=== PATIENT | female | born 1945 | race Caucasian/White ===

== ENCOUNTER 2020-04-21 13:52 | Inpatient (IN) ==
[2020-04-21] MEDS ORDERED: SODIUM CHLORIDE 0.9% 1,000 ML IV STA (14:21)
[2020-04-21 15:00] LABS: Basophils % 0.7 % (0.0-0.8); Hematocrit 43.8 VOL% (35.7-47.0); Hemoglobin 14.9 GM/DL (12.0-16.0); Immature Granulocytes % 0.7 %; Immature Granulocytes Absolute 0.02 #; Lymphocytes # 0.7 10*3/uL (1.4-4.0); Lymphocytes % 23.4 % (21.3-54.2); Mean Corpuscular Volume 84.6 FL (87-102); Mean Platelet Volume 9.6 FL (9.6-12.0); Monocytes % 14.7 % (1.7-12.7); Neutrophils % 60.5 % (38.7-73.9); Platelet Count 188 T/CUMM (130-400); Red Blood Count 5.18 MC/CUMM (3.8-5.5); Red Cell Distribution Width 13.2 % (9.3-17.3)
[2020-04-21 15:24] LABS: Albumin 3.5 G/DL (3.4-5.0); Bilirubin,Total 0.4 MG/DL (0.2-1.0); Calcium 8.4 MG/DL (8.5-10.1); Osmolality,Calculated 271.4 MOS/KG (273-304); Total Protein 7.6 G/DL (6.4-8.3)
[2020-04-21 15:31] LABS: Band Neutrophils 10 % (0-10); Lymphocytes 24 % (20-55); Segmented Neutrophils 51 % (50-85); Total Cells Counted 100
[2020-04-21 15:32] LABS: Atypical Lymphocytes 1+; Platelet Estimate Adequate
[2020-04-21 15:44] LABS: Bacteria,Urine Occasional /HPF (Few); Bilirubin,Urine Negative (Negative); Blood, Urine Negative (Negative); Glucose,Urine (UA) Negative (Negative); Hyaline Casts,Urine 1 /LPF (0-3); Ketones,Urine 20 mg/dL (Negative); Mucus,Urine Occasional /LPF (Occasional); Nitrite,Urine Negative (Negative); Protein,Urine 30 MG/DL; Squamous Epithelial Cell,Urine Occasional /HPF (0-10); Urine Appearance Slightly Hazy (Clear); Urine Color Amber (Yellow); Urine Urobilinogen < 2.0 EU/DL (0.2-1.0)
[2020-04-21] MEDS ORDERED: ACETAMINOPHEN 325 MG TABLET PO PRN (15:55)
[2020-04-21] MEDS ORDERED: INFLUENZA VIRUS VACCINE 0.5 ML SYRINGE IM ONE (17:57)
[2020-04-21] MEDS: SODIUM CHLORIDE 0.9% 1,000 ML IV SCH (18:31)
[2020-04-21] MEDS: ONDANSETRON 4 MG/2 ML VIAL IV PRN ×2 (18:56→18:57)
[2020-04-21] MEDS: methylPREDNISolone SOD SUC 40 MG/1 ML VIAL IV SCH (20:34)
[2020-04-21] MEDS: MEMANTINE 10 MG TABLET PO SCH (20:34)
[2020-04-21] MEDS ORDERED: DOCUSATE SODIUM 100 MG CAPSULE PO SCH (21:00)
[2020-04-22] MEDS: SODIUM CHLORIDE 0.9% 1,000 ML IV SCH ×3 (00:30→18:34)
[2020-04-22] MEDS: LEVOTHYROXINE 88 MCG TABLET PO SCH (06:15)
[2020-04-22 06:26] LABS: Hematocrit 38.2 VOL% (35.7-47.0); Hemoglobin 12.9 GM/DL (12.0-16.0); Immature Granulocytes % 0.6 %; Immature Granulocytes Absolute 0.01 #; Lymphocytes # 0.5 10*3/uL (1.4-4.0); Lymphocytes % 32.5 % (21.3-54.2); Mean Corpuscular HGB Conc 33.8 GM/DL (32-36); Mean Corpuscular Volume 84.9 FL (87-102); Mean Platelet Volume 9.8 FL (9.6-12.0); Monocytes % 10.8 % (1.7-12.7); Neutrophils % 56.1 % (38.7-73.9); Platelet Count 148 T/CUMM (130-400); Red Cell Distribution Width 13.2 % (9.3-17.3); White Blood Count 1.6 T/CUMM (4-12)
[2020-04-22 06:53] LABS: Calcium 7.4 MG/DL (8.5-10.1); Osmolality,Calculated 279.5 MOS/KG (273-304)
[2020-04-22 06:54] LABS: Band Neutrophils 4 % (0-10); Burr Cells Slight; Hypochromasia Slight; Lymphocytes 29 % (20-55); Microcytosis Slight; Ovalocytes Slight; Platelet Estimate Adequate; Segmented Neutrophils 58 % (50-85); Total Cells Counted 100
[2020-04-22 06:55] LABS: Atypical Lymphocytes Few
[2020-04-22] MEDS: methylPREDNISolone SOD SUC 40 MG/1 ML VIAL IV SCH ×2 (08:03→16:31)
[2020-04-22] MEDS: SIMVASTATIN 20 MG TABLET PO SCH (08:04)
[2020-04-22] MEDS: PANTOPRAZOLE 40 MG TABLET PO SCH (08:04)
[2020-04-22] MEDS: MEMANTINE 10 MG TABLET PO SCH ×2 (08:04→20:35)
[2020-04-22] MEDS ORDERED: DONEPEZIL 10 MG TABLET PO SCH (09:00)
[2020-04-22] MEDS: ONDANSETRON 4 MG/2 ML VIAL IV PRN (11:10)
[2020-04-22] MEDS ORDERED: PROMETHAZINE 25 MG/1 ML VIAL IM ONE (14:50)
[2020-04-22] MEDS ORDERED: PROMETHAZINE 25 MG/1 ML VIAL IM PRN (14:50)
[2020-04-22] MEDS: MEROPENEM 500 MG in SODIUM CHLORIDE 0.9% 100 ML IV SCH ×2 (16:30→21:08)
[2020-04-23] MEDS: SODIUM CHLORIDE 0.9% 1,000 ML IV SCH ×4 (00:10→20:30)
[2020-04-23] MEDS: methylPREDNISolone SOD SUC 40 MG/1 ML VIAL IV SCH (04:19)
[2020-04-23] MEDS: MEROPENEM 500 MG in SODIUM CHLORIDE 0.9% 100 ML IV SCH ×4 (04:19→21:02)
[2020-04-23] MEDS: LEVOTHYROXINE 88 MCG TABLET PO SCH (06:01)
[2020-04-23] MEDS: MEMANTINE 10 MG TABLET PO SCH ×2 (09:19→20:26)
[2020-04-23] MEDS: PANTOPRAZOLE 40 MG TABLET PO SCH (09:19)
[2020-04-23 09:29] LABS: Hematocrit 37.5 VOL% (35.7-47.0); Hemoglobin 12.7 GM/DL (12.0-16.0); Immature Granulocytes % 0.7 %; Immature Granulocytes Absolute 0.03 #; Lymphocytes # 0.5 10*3/uL (1.4-4.0); Lymphocytes % 11.7 % (21.3-54.2); Mean Corpuscular HGB Conc 33.9 GM/DL (32-36); Mean Corpuscular Volume 85.2 FL (87-102); Mean Platelet Volume 9.8 FL (9.6-12.0); Monocytes % 6.1 % (1.7-12.7); Neutrophils % 81.5 % (38.7-73.9); Platelet Count 153 T/CUMM (130-400); Red Cell Distribution Width 13.2 % (9.3-17.3); White Blood Count 4.1 T/CUMM (4-12)
[2020-04-23 09:49] LABS: Albumin 2.6 G/DL (3.4-5.0); Bilirubin,Total 0.7 MG/DL (0.2-1.0); Calcium 7.5 MG/DL (8.5-10.1); Osmolality,Calculated 280.4 MOS/KG (273-304); Total Protein 6.1 G/DL (6.4-8.3)
[2020-04-23] MEDS: buPROPion 75 MG TABLET PO SCH ×2 (10:00→20:26)
[2020-04-23] MEDS: SIMVASTATIN 20 MG TABLET PO SCH (10:00)
[2020-04-23] MEDS: TAMSULOSIN 0.4 MG CAPSULE PO SCH (10:00)
[2020-04-23] MEDS: CITALOPRAM 20 MG TABLET PO SCH (10:00)
[2020-04-24] MEDS: SODIUM CHLORIDE 0.9% 1,000 ML IV SCH ×3 (04:00→22:01)
[2020-04-24] MEDS: MEROPENEM 500 MG in SODIUM CHLORIDE 0.9% 100 ML IV SCH ×4 (05:50→22:01)
[2020-04-24] MEDS: LEVOTHYROXINE 88 MCG TABLET PO SCH (06:00)
[2020-04-24 06:09] LABS: Basophils % 0.2 % (0.0-0.8); Hematocrit 33.6 VOL% (35.7-47.0); Hemoglobin 11.5 GM/DL (12.0-16.0); Immature Granulocytes % 0.5 %; Immature Granulocytes Absolute 0.02 #; Lymphocytes # 0.8 10*3/uL (1.4-4.0); Lymphocytes % 17.9 % (21.3-54.2); Mean Corpuscular HGB Conc 34.2 GM/DL (32-36); Mean Corpuscular Volume 84.8 FL (87-102); Mean Platelet Volume 10.1 FL (9.6-12.0); Monocytes % 10.8 % (1.7-12.7); Neutrophils % 70.6 % (38.7-73.9); Platelet Count 157 T/CUMM (130-400); Red Blood Count 3.96 MC/CUMM (3.8-5.5); White Blood Count 4.3 T/CUMM (4-12)
[2020-04-24 06:51] LABS: Alanine Aminotransferase < 9 U/L (13-56); Albumin 2.4 G/DL (3.4-5.0); Alkaline Phosphatase 60 U/L (45-117); Aspartate Amino Transferase 22 U/L (0-37); Blood Urea Nitrogen 12 MG/DL (7-18); Calcium 7.3 MG/DL (8.5-10.1); Estimated Glom Filtration Rate 86 ML/MIN; Glucose 97 MG/DL (74-106); Osmolality,Calculated 272.8 MOS/KG (273-304); Total Protein 5.4 G/DL (6.4-8.3)
[2020-04-24] MEDS: POTASSIUM CHLORIDE RIDER 10 MEQ in PREMIX 1 EACH IV SCH ×3 (09:05→12:21)
[2020-04-24] MEDS: buPROPion 75 MG TABLET PO SCH ×2 (09:06→21:15)
[2020-04-24] MEDS: CITALOPRAM 20 MG TABLET PO SCH (09:06)
[2020-04-24] MEDS: methylPREDNISolone SOD SUC 40 MG/1 ML VIAL IV SCH ×2 (09:06→18:12)
[2020-04-24] MEDS: TAMSULOSIN 0.4 MG CAPSULE PO SCH (09:06)
[2020-04-24] MEDS: MEMANTINE 10 MG TABLET PO SCH ×2 (09:06→21:15)
[2020-04-24] MEDS: PANTOPRAZOLE 40 MG TABLET PO SCH (09:06)
[2020-04-24] MEDS: SIMVASTATIN 20 MG TABLET PO SCH (09:06)
[2020-04-25] MEDS: methylPREDNISolone SOD SUC 40 MG/1 ML VIAL IV SCH ×3 (00:29→15:54)
[2020-04-25] MEDS: SODIUM CHLORIDE 0.9% 1,000 ML IV SCH ×4 (02:43→15:53)
[2020-04-25] MEDS: MEROPENEM 500 MG in SODIUM CHLORIDE 0.9% 100 ML IV SCH ×4 (04:55→21:03)
[2020-04-25 05:02] LABS: Hematocrit 34.6 VOL% (35.7-47.0); Hemoglobin 11.7 GM/DL (12.0-16.0); Immature Granulocytes % 0.8 %; Immature Granulocytes Absolute 0.05 #; Lymphocytes # 0.4 10*3/uL (1.4-4.0); Lymphocytes % 5.7 % (21.3-54.2); Mean Corpuscular HGB Conc 33.8 GM/DL (32-36); Mean Corpuscular Volume 85.2 FL (87-102); Monocytes % 3.9 % (1.7-12.7); Neutrophils % 89.6 % (38.7-73.9); Platelet Count 155 T/CUMM (130-400); Red Blood Count 4.06 MC/CUMM (3.8-5.5); Red Cell Distribution Width 13.2 % (9.3-17.3); White Blood Count 6.6 T/CUMM (4-12)
[2020-04-25 05:20] LABS: Calcium 7.4 MG/DL (8.5-10.1); Osmolality,Calculated 281.3 MOS/KG (273-304)
[2020-04-25] MEDS: LEVOTHYROXINE 88 MCG TABLET PO SCH (06:34)
[2020-04-25] MEDS: LEVOFLOXACIN INJ 500 MG in PREMIX 1 EACH IV SCH (08:50)
[2020-04-25] MEDS: MEMANTINE 10 MG TABLET PO SCH ×2 (09:30→21:02)
[2020-04-25] MEDS: CITALOPRAM 20 MG TABLET PO SCH (09:30)
[2020-04-25] MEDS: TAMSULOSIN 0.4 MG CAPSULE PO SCH (09:30)
[2020-04-25] MEDS: SIMVASTATIN 20 MG TABLET PO SCH (09:30)
[2020-04-25] MEDS: buPROPion 75 MG TABLET PO SCH ×2 (09:30→21:03)
[2020-04-25] MEDS: PANTOPRAZOLE 40 MG TABLET PO SCH (09:30)
[2020-04-26] MEDS: methylPREDNISolone SOD SUC 40 MG/1 ML VIAL IV SCH ×3 (00:28→16:32)
[2020-04-26] MEDS: SODIUM CHLORIDE 0.9% 1,000 ML IV SCH ×3 (00:46→21:00)
[2020-04-26] MEDS: MEROPENEM 500 MG in SODIUM CHLORIDE 0.9% 100 ML IV SCH ×4 (03:54→21:01)
[2020-04-26 05:25] LABS: Basophils % 0.1 % (0.0-0.8); Hematocrit 34.7 VOL% (35.7-47.0); Hemoglobin 11.6 GM/DL (12.0-16.0); Immature Granulocytes % 0.9 %; Immature Granulocytes Absolute 0.08 #; Lymphocytes # 0.4 10*3/uL (1.4-4.0); Lymphocytes % 4.2 % (21.3-54.2); Mean Corpuscular HGB Conc 33.4 GM/DL (32-36); Mean Corpuscular Volume 85.3 FL (87-102); Mean Platelet Volume 10.3 FL (9.6-12.0); Monocytes % 3.4 % (1.7-12.7); Neutrophils % 91.4 % (38.7-73.9); Platelet Count 191 T/CUMM (130-400); Red Blood Count 4.07 MC/CUMM (3.8-5.5); Red Cell Distribution Width 13.1 % (9.3-17.3); White Blood Count 9.2 T/CUMM (4-12)
[2020-04-26 05:49] LABS: Calcium 7.5 MG/DL (8.5-10.1); Osmolality,Calculated 284.1 MOS/KG (273-304)
[2020-04-26 05:53] LABS: Hypochromasia 1+; Lymphocytes 5 % (20-55); Microcytosis 1+; Ovalocytes Slight; Platelet Estimate Adequate; Segmented Neutrophils 91 % (50-85); Total Cells Counted 100
[2020-04-26] MEDS: LEVOFLOXACIN INJ 500 MG in PREMIX 1 EACH IV SCH (06:04)
[2020-04-26] MEDS: LEVOTHYROXINE 88 MCG TABLET PO SCH (06:05)
[2020-04-26] MEDS: PANTOPRAZOLE 40 MG TABLET PO SCH (08:05)
[2020-04-26] MEDS: SIMVASTATIN 20 MG TABLET PO SCH (08:05)
[2020-04-26] MEDS: CITALOPRAM 20 MG TABLET PO SCH (08:05)
[2020-04-26] MEDS: MEMANTINE 10 MG TABLET PO SCH ×2 (08:05→21:00)
[2020-04-26] MEDS: TAMSULOSIN 0.4 MG CAPSULE PO SCH (08:05)
[2020-04-26] MEDS: buPROPion 75 MG TABLET PO SCH ×2 (08:05→21:00)
[2020-04-27] MEDS: methylPREDNISolone SOD SUC 40 MG/1 ML VIAL IV SCH ×3 (00:38→16:08)
[2020-04-27] MEDS: MEROPENEM 500 MG in SODIUM CHLORIDE 0.9% 100 ML IV SCH (03:33)
[2020-04-27] MEDS: SODIUM CHLORIDE 0.9% 1,000 ML IV SCH ×3 (05:38→16:16)
[2020-04-27] MEDS: LEVOFLOXACIN INJ 500 MG in PREMIX 1 EACH IV SCH (06:10)
[2020-04-27] MEDS: LEVOTHYROXINE 88 MCG TABLET PO SCH (06:23)
[2020-04-27 06:52] LABS: Basophils % 0.1 % (0.0-0.8); Hematocrit 34.3 VOL% (35.7-47.0); Hemoglobin 11.7 GM/DL (12.0-16.0); Immature Granulocytes % 2.3 %; Immature Granulocytes Absolute 0.18 #; Lymphocytes # 0.4 10*3/uL (1.4-4.0); Lymphocytes % 5.3 % (21.3-54.2); Mean Corpuscular HGB Conc 34.1 GM/DL (32-36); Mean Corpuscular Volume 84.7 FL (87-102); Mean Platelet Volume 10.1 FL (9.6-12.0); Neutrophils % 88.3 % (38.7-73.9); Platelet Count 254 T/CUMM (130-400); Red Blood Count 4.05 MC/CUMM (3.8-5.5); Red Cell Distribution Width 13.2 % (9.3-17.3); White Blood Count 7.7 T/CUMM (4-12)
[2020-04-27 07:12] LABS: Calcium 7.4 MG/DL (8.5-10.1); Osmolality,Calculated 287.8 MOS/KG (273-304)
[2020-04-27] MEDS: MEMANTINE 10 MG TABLET PO SCH ×2 (08:45→20:33)
[2020-04-27] MEDS: buPROPion 75 MG TABLET PO SCH ×2 (08:45→20:33)
[2020-04-27] MEDS: TAMSULOSIN 0.4 MG CAPSULE PO SCH (08:45)
[2020-04-27] MEDS: SIMVASTATIN 20 MG TABLET PO SCH (08:45)
[2020-04-27] MEDS: CITALOPRAM 20 MG TABLET PO SCH (08:45)
[2020-04-27] MEDS: PANTOPRAZOLE 40 MG TABLET PO SCH (08:45)
[2020-04-27] MEDS: POTASSIUM CHLORIDE RIDER 10 MEQ in PREMIX 1 EACH IV SCH ×2 (08:45→09:55)
[2020-04-28] MEDS: methylPREDNISolone SOD SUC 40 MG/1 ML VIAL IV SCH ×3 (00:25→16:49)
[2020-04-28] MEDS: SODIUM CHLORIDE 0.9% 1,000 ML IV SCH ×3 (00:25→16:43)
[2020-04-28 06:29] LABS: Basophils % 0.3 % (0.0-0.8); Hematocrit 33.1 VOL% (35.7-47.0); Hemoglobin 11.5 GM/DL (12.0-16.0); Immature Granulocytes % 5.2 %; Immature Granulocytes Absolute 0.39 #; Lymphocytes # 0.5 10*3/uL (1.4-4.0); Mean Corpuscular HGB Conc 34.7 GM/DL (32-36); Mean Corpuscular Volume 84.2 FL (87-102); Mean Platelet Volume 10.3 FL (9.6-12.0); Monocytes % 4.9 % (1.7-12.7); Neutrophils % 83.6 % (38.7-73.9); Platelet Count 265 T/CUMM (130-400); Red Blood Count 3.93 MC/CUMM (3.8-5.5); Red Cell Distribution Width 13.1 % (9.3-17.3); White Blood Count 7.5 T/CUMM (4-12)
[2020-04-28] MEDS: LEVOFLOXACIN INJ 500 MG in PREMIX 1 EACH IV SCH (06:37)
[2020-04-28] MEDS: LEVOTHYROXINE 88 MCG TABLET PO SCH (06:37)
[2020-04-28 08:15] LABS: Calcium 7.1 MG/DL (8.5-10.1); Osmolality,Calculated 281.3 MOS/KG (273-304)
[2020-04-28] MEDS: CITALOPRAM 20 MG TABLET PO SCH (08:48)
[2020-04-28] MEDS: MEMANTINE 10 MG TABLET PO SCH ×2 (08:48→20:10)
[2020-04-28] MEDS: buPROPion 75 MG TABLET PO SCH ×2 (08:48→20:10)
[2020-04-28] MEDS: TAMSULOSIN 0.4 MG CAPSULE PO SCH (08:48)
[2020-04-28] MEDS: PANTOPRAZOLE 40 MG TABLET PO SCH (08:48)
[2020-04-28] MEDS: SIMVASTATIN 20 MG TABLET PO SCH (08:49)
[2020-04-28 09:41] LABS: Hypochromasia Slight; Lymphocytes 18 % (20-55); Platelet Estimate Normal; Polychromasia Slight; Segmented Neutrophils 75 % (50-85); Total Cells Counted 100
[2020-04-28] MEDS: POTASSIUM CHLORIDE 20 MEQ TABLET PO PRN ×4 (14:00→18:50)
[2020-04-29] MEDS: methylPREDNISolone SOD SUC 40 MG/1 ML VIAL IV SCH ×3 (00:02→17:09)
[2020-04-29] MEDS: SODIUM CHLORIDE 0.9% 1,000 ML IV SCH ×3 (00:03→17:11)
[2020-04-29] MEDS: LEVOFLOXACIN INJ 500 MG in PREMIX 1 EACH IV SCH (06:20)
[2020-04-29] MEDS: LEVOTHYROXINE 88 MCG TABLET PO SCH (06:20)
[2020-04-29 06:37] LABS: Basophils % 0.5 % (0.0-0.8); Hematocrit 35.8 VOL% (35.7-47.0); Hemoglobin 12.2 GM/DL (12.0-16.0); Immature Granulocytes % 7.8 %; Immature Granulocytes Absolute 0.66 #; Lymphocytes # 0.5 10*3/uL (1.4-4.0); Mean Corpuscular HGB Conc 34.1 GM/DL (32-36); Mean Platelet Volume 10.1 FL (9.6-12.0); Monocytes % 4.2 % (1.7-12.7); Neutrophils % 81.5 % (38.7-73.9); Platelet Count 290 T/CUMM (130-400); Red Blood Count 4.21 MC/CUMM (3.8-5.5); White Blood Count 8.5 T/CUMM (4-12)
[2020-04-29 07:00] LABS: Calcium 7.4 MG/DL (8.5-10.1); Osmolality,Calculated 280.4 MOS/KG (273-304)
[2020-04-29] MEDS: buPROPion 75 MG TABLET PO SCH ×2 (08:40→20:15)
[2020-04-29] MEDS: SIMVASTATIN 20 MG TABLET PO SCH (08:40)
[2020-04-29] MEDS: CITALOPRAM 20 MG TABLET PO SCH (08:40)
[2020-04-29] MEDS: TAMSULOSIN 0.4 MG CAPSULE PO SCH (08:40)
[2020-04-29] MEDS: PANTOPRAZOLE 40 MG TABLET PO SCH (08:40)
[2020-04-29] MEDS: MEMANTINE 10 MG TABLET PO SCH ×2 (08:40→20:15)
[2020-04-29 12:32] LABS: Lymphocytes 6 % (20-55); Platelet Estimate Adequate; Segmented Neutrophils 90 % (50-85); Total Cells Counted 100
[2020-04-29 12:33] LABS: Anisocytosis Slight
[2020-04-30] MEDS: methylPREDNISolone SOD SUC 40 MG/1 ML VIAL IV SCH ×2 (00:01→08:44)
[2020-04-30] MEDS: SODIUM CHLORIDE 0.9% 1,000 ML IV SCH ×2 (00:01→08:49)
[2020-04-30] MEDS: LEVOTHYROXINE 88 MCG TABLET PO SCH (06:00)
[2020-04-30] MEDS: LEVOFLOXACIN INJ 500 MG in PREMIX 1 EACH IV SCH (06:08)
[2020-04-30] MEDS: PANTOPRAZOLE 40 MG TABLET PO SCH (08:44)
[2020-04-30] MEDS: MEMANTINE 10 MG TABLET PO SCH (08:44)
[2020-04-30] MEDS: SIMVASTATIN 20 MG TABLET PO SCH (08:44)
[2020-04-30] MEDS: buPROPion 75 MG TABLET PO SCH (08:44)
[2020-04-30] MEDS: TAMSULOSIN 0.4 MG CAPSULE PO SCH (08:44)
[2020-04-30] MEDS: CITALOPRAM 20 MG TABLET PO SCH (08:44)
[2020-04-30 11:39] VITALS: BP 123/56
[2020-04-30] MEDS ORDERED: CEFUROXIME 250 MG TABLET PO SCH (21:00)
== END 2020-04-30 14:20 | disposition home or self-care (01) | DRG 177 ==
LOC: EDUNIT# → N.2E 13:52 → N.ED 13:52 → N.2E 17:30
PROVIDERS: ADMIT Family Medicine; ATTEND Family Medicine